=== PATIENT | male | born 1995 | race African-American/Black ===

== ENCOUNTER 2020-02-10 14:02 | Emergency (ER) | payer OTHER ==
[~2020-02-10] VITALS: Ht 182.9 cm; Wt 59.1 kg
[2020-02-10] MEDS ORDERED: ACET-2865 PO (14:08)
[2020-02-10 15:14] VITALS: BP 125/73
== END 2020-02-10 15:15 | disposition home or self-care (01) ==
LOC: EMS 14:02
DX: J34.0 Abscess, furuncle and carbuncle of nose (principal); F17.210 Nicotine dependence, cigarettes, uncomplicated; F12.90 Cannabis use, unspecified, uncomplicated